=== PATIENT | female | born 1975 | race Caucasian/White ===

== ENCOUNTER 2016-07-16 17:17 | Emergency (ER) | payer OTHER ==
--- NOTE | 2016-07-16 18:05 | ED NURSING NOTES ---
Clinical Report - Nurses [facility] [address] [place] [address] 07/16/2016 17:17 Patient: ZO OROSCO TRIAGE Triage time 17:31. Acuity: LEVEL 4. Chief Complaint: SINUS DRAINAGE and SINUS CONGESTION. 17:31 07/16/16. 17:31 07/16/16. Alert. No acute distress. --17:37 Chris Leroy R.N. 17:31 07/16/16. BP: 140/80. HR: 95. RR: 14. O2 saturation: 100% on room air. Temp: 97.8 F (oral). Pain level now: 0/10. --17:37 Chris Leroy R.N. Weight: 83.9 kg stated. Height/Length: 65 inches Per Patient. BMI: 30.8. --17:32 Chris Leroy R.N. Medications Albuterol-Ipratropium Inhalation. --17:32 Chris Leroy R.N. Depo-Provera Intramuscular, q 3 months. --17:32 Chris Leroy R.N. Nicotine Transdermal. --17:32 Chris Leroy R.N. Medication/allergy information source: the patient. --17:37 Chris Leroy R.N. Allergies No Known Drug Allergy. --17:32 Chris Leroy R.N. History Arrived by private vehicle. Historian: patient. Accompanied by family. Primary physician (Kyle Wilson). 17:31 07/16/16. Onset. (Last week). 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 PAST MEDICAL HX: Last normal menstrual period- Depo "irregular" due to depo. Immunizations not up to date. SOCIAL HX: Current every day light tobacco smoker (cigarette)- less than 1/2 a pack per day. No alcohol use or drug use. No recent travel. She has had contact with a sick individual. No infectious disease exposure. FALL RISK ASSESSMENT: Fall risk assessment completed. No fall risk identified. NUTRITIONAL RISK ASSESSMENT: The nutritional risk assessment revealed no deficiencies. FUNCTIONAL ASSESSMENT: Functional assessment: no impairments noted. LEARNING NEEDS ASSESSMENT: The learning needs assessment revealed no barriers. SKIN INTEGRITY ASSESSMENT: Skin integrity risk assessment completed. No skin integrity risk identified. --17:37 Chris Leroy R.N. PROBLEMS: Eczema. Ear Infection. Cellulitis. MRSA Infection. Dental Pain. Asthma. --17:33 Chris Leroy R.N. Otitis Media [RuleOut]. Bronchitis [RuleOut]. Pharyngitis [RuleOut]. Sinusitis [RuleOut]. --17:33 Chris Leroy R.N. ADDITIONAL SURGERIES: . Ear tubes . Tonsillectomy. --17:33 Chris Leroy R.N. Assessment 17:07/16/16. --17:37 Chris Leroy R.N. Interventions 17:07/16/16. 17:07/16/16. ID and allergy band on patient. To treatment room. --17:37 Chris Leroy R.N. PHYSICAL ASSESSMENT 17:33 07/16/16. Ambulatory to room. GENERAL / NEURO / PSYCH: Alert. Oriented X 4. RESPIRATORY: Respirations not labored. SKIN: Skin is warm and dry. --17:33 Chris Leroy R.N. NURSING PROGRESS NOTES 17:34 07/16/16. The plan of care for this patient has been created. Patient gowned. Head of bed elevated. Two patient identifiers checked. Call light placed in reach. Side rails up x 2. Bed placed in lowest position. Brakes of bed on. Brakes of chair on. --17:34 Chris Leroy R.N. 17:34 07/16/16. Patient ready for evaluation- chart flagged and notification provided. --17:34 Chris Leroy R.N. DISPOSITION / DISCHARGE 18:11 07/16/16. Condition at departure: improved. The goals identified in the patient's plan of care were met. No learning barriers present. Discharge instructions provided and reviewed with the patient. Reviewed warnings. Reviewed medication(s). Treatments reviewed. Patient verbalized understanding. Written instructions provided in Thai. The patient was discharged by the physician. She was discharged home and accompanied by family. She left the Emergency Department ambulatory and via private vehicle. Family member driving. FALL RISK ASSESSMENT: Fall risk assessment completed. No fall risk identified. --18:11 Chris Leroy R.N. 18:11 07/16/16. BP: 134/72. HR: 80. RR: 12. O2 saturation: 99% on room air. Temp: 98.2 F (oral). --18:11 Chris Leroy R.N. 18:12 07/16/16. Departure time: 18:12. --18:12 Chris Leroy R.N. Locked/Released at 07/16/2016 18:16 by Chris Leroy R.N.
--- NOTE | 2016-07-16 18:05 | ED CLINICAL REPORT ---
Clinical Report - Physicians/Mid Levels [facility] [address] [place] [address] 07/16/2016 17:17 Patient: ZO OROSCO Arrived- By private vehicle. Historian- patient. HISTORY OF PRESENT ILLNESS Chief Complaint: SINUS PAIN. This started past two weeks and is still present (staying the same). It was gradual in onset and has been constant but is not gone now. The illness is described as moderate. The patient has had sputum production, a cough, nasal congestion, moderate sinus pressure . Associated symptoms include sinus drainage and a nasal discharge. Additional history - The patient has had contact with a sick individual. Similar symptoms previously: None. Recent medical care: The patient was seen recently in a clinic. REVIEW OF SYSTEMS No nausea, vomiting or skin rash. All systems otherwise negative, except as recorded above. PAST HISTORY See nurses notes. SOCIAL HISTORY Smoker- current status unknown. No alcohol use or drug use. No recent travel. Is a local resident. ADDITIONAL NOTES The nursing notes have been reviewed. PHYSICAL EXAM Vital Signs: 07/16/2016 17:31 BP: 140/80. HR: 95. RR: 14. O2 saturation: 100%. Temp: 97.8 F. Pain level now: 0/10. Blood pressure normal. Oxygen saturation normal. Appearance: Alert. No acute distress. Eyes: Pupils equal, round and reactive to light. Eyes normal inspection. ENT: Ears normal. Nose normal. Pharynx normal. Uvula midline. (bilateral frontal sinus tenderness. no swelling. no overyling skin changes, crepitus, daniella abnormalities, erythema, or gross deformities.). Neck: Normal inspection. Neck supple. No meningeal signs. CVS: Normal heart rate and rhythm. Heart sounds normal. Pulses normal. Respiratory: No respiratory distress. Breath sounds normal. No rales, wheezes or stridor. Abdomen: Soft and nontender. No organomegaly. Skin: Skin warm and dry. Normal skin color. No rash. Normal skin turgor. PROGRESS AND PROCEDURES Course of Care: The patient is a pleasant 40-year-old female with past medical history significant for frequent ear infections presented for evaluation of sinus pressure and ear pain. Patient has no signs of acute otitis media on examination. The patient does have some frontal sinus tenderness. Causes of the patient's symptoms, have considered antibiotics. I discussed antibiotic therapy with the patient here in the emergency department. Patient is agreeable to the treatment plan. No signs of Pott's puffy tumor on examination. No other signs of sepsis. Patient has no signs of meningitis. Do not feel patient requires imaging or laboratory studies done here based on her symptoms. Patient will be managed conservatively with antibiotics. Do not feel patient needs to be admitted to the hospital or require further emergency department workup/evaluation. Patient is at low risk for serious competitions with this type of illness and presentation. Patient will be instructed to follow-up with her primary care Dr. Discussed with patient workup, diagnosis, home care, follow-up, and return precautions. All questions answered. The patient expressed understanding of these instructions and was agreeable to them. Prior to patient's departure in the emergency department she is known to be nontoxic and in no acute distress. Disposition: Discharged. Condition: good. CLINICAL IMPRESSION Acute frontal sinusitis (bilateral prolonged). INSTRUCTIONS Warnings: GENERAL WARNINGS: Return or contact your physician immediately if your condition worsens or changes unexpectedly, if not improving as expected, or if other problems arise. Specifically return if pain, vomiting, bleeding, breathing difficulty or fever. Your Current Medications: CONTINUE TAKING THE FOLLOWING MEDICATIONS: Albuterol-Ipratropium Inhalation. Depo-Provera Intramuscular : q 3 months. Nicotine Transdermal. Prescription Medications: Zithromax Z-Damien: Take according to package instructions. No refills. Substitution is permissible. Follow-up: Return to the emergency department as needed. Follow up with your doctor in three days. Reason for referral: recheck today's concerns. Summary of care provided to patient via paper. Screening today revealed the patient's blood pressure to be in the normal range. The patient should follow up with a primary care provider for blood pressure management. Understanding of the discharge instructions verbalized by patient. (Electronically signed by Kurt Villagran Dr. 07/18/2016 19:24)
--- NOTE | 2016-07-16 18:05 | ED NURSING NOTES ---
Clinical Report - Nurses [facility] [address] [place] [address] 07/16/2016 17:17 Patient: ZO OROSCO TRIAGE Triage time 17:31. Acuity: LEVEL 4. Chief Complaint: SINUS DRAINAGE and SINUS CONGESTION. 17:31 07/16/16. 17:31 07/16/16. Alert. No acute distress. --17:37 Chris Leroy R.N. 17:31 07/16/16. BP: 140/80. HR: 95. RR: 14. O2 saturation: 100% on room air. Temp: 97.8 F (oral). Pain level now: 0/10. --17:37 Chris Leroy R.N. Weight: 83.9 kg stated. Height/Length: 65 inches Per Patient. BMI: 30.8. --17:32 Chris Leroy R.N. Medications Albuterol-Ipratropium Inhalation. --17:32 Chris Leroy R.N. Depo-Provera Intramuscular, q 3 months. --17:32 Chris Leroy R.N. Nicotine Transdermal. --17:32 Chris Leroy R.N. Medication/allergy information source: the patient. --17:37 Chris Leroy R.N. Allergies No Known Drug Allergy. --17:32 Chris Leroy R.N. History Arrived by private vehicle. Historian: patient. Accompanied by family. Primary physician (Kyle Wilson). 17:31 07/16/16. Onset. (Last week). 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 PAST MEDICAL HX: Last normal menstrual period- Depo "irregular" due to depo. Immunizations not up to date. SOCIAL HX: Current every day light tobacco smoker (cigarette)- less than 1/2 a pack per day. No alcohol use or drug use. No recent travel. She has had contact with a sick individual. No infectious disease exposure. FALL RISK ASSESSMENT: Fall risk assessment completed. No fall risk identified. NUTRITIONAL RISK ASSESSMENT: The nutritional risk assessment revealed no deficiencies. FUNCTIONAL ASSESSMENT: Functional assessment: no impairments noted. LEARNING NEEDS ASSESSMENT: The learning needs assessment revealed no barriers. SKIN INTEGRITY ASSESSMENT: Skin integrity risk assessment completed. No skin integrity risk identified. --17:37 Chris Leroy R.N. PROBLEMS: Eczema. Ear Infection. Cellulitis. MRSA Infection. Dental Pain. Asthma. --17:33 Chris Leroy R.N. Otitis Media [RuleOut]. Bronchitis [RuleOut]. Pharyngitis [RuleOut]. Sinusitis [RuleOut]. --17:33 Chris Leroy R.N. ADDITIONAL SURGERIES: . Ear tubes . Tonsillectomy. --17:33 Chris Leroy R.N. Assessment 17:07/16/16. --17:37 hCris Leroy R.N. Interventions 17:07/16/16. 17:07/16/16. ID and allergy band on patient. To treatment room. --17:37 Chris Leroy R.N. PHYSICAL ASSESSMENT 17:33 07/16/16. Ambulatory to room. GENERAL / NEURO / PSYCH: Alert. Oriented X 4. RESPIRATORY: Respirations not labored. SKIN: Skin is warm and dry. --17:33 Chris Leroy R.N. NURSING PROGRESS NOTES 17:34 07/16/16. The plan of care for this patient has been created. Patient gowned. Head of bed elevated. Two patient identifiers checked. Call light placed in reach. Side rails up x 2. Bed placed in lowest position. Brakes of bed on. Brakes of chair on. --17:34 Chris Leroy R.N. 17:34 07/16/16. Patient ready for evaluation- chart flagged and notification provided. --17:34 Chris Leroy R.N. DISPOSITION / DISCHARGE 18:11 07/16/16. Condition at departure: improved. The goals identified in the patient's plan of care were met. No learning barriers present. Discharge instructions provided and reviewed with the patient. Reviewed warnings. Reviewed medication(s). Treatments reviewed. Patient verbalized understanding. Written instructions provided in Kinyarwanda. The patient was discharged by the physician. She was discharged home and accompanied by family. She left the Emergency Department ambulatory and via private vehicle. Family member driving. FALL RISK ASSESSMENT: Fall risk assessment completed. No fall risk identified. --18:11 Chris Leroy R.N. 18:11 07/16/16. BP: 134/72. HR: 80. RR: 12. O2 saturation: 99% on room air. Temp: 98.2 F (oral). --18:11 Chris Leroy R.N. 18:12 07/16/16. Departure time: 18:12. --18:12 Chris Leroy R.N. Locked/Released at 07/16/2016 18:16 by Chris Leroy R.N.
--- NOTE | 2016-07-18 19:25 | ED MED RECONCILIATION SUMMARY ---
Patient: ZO OROSCO Medication Reconciliation Report [facility] VisitID: [id number] [address] [place] [address] 40y, F Registration Date/Time: 07/16/2016 Weight: 83.9 kg Height/Length: 65 in. BMI: 30.8 ALLERGIES: No Known Drug Allergy The patient's Home Medications are listed below: CONTINUE TAKING THE FOLLOWING MEDICATIONS: Albuterol-Ipratropium Inhalation Depo-Provera Intramuscular, q 3 months Nicotine Transdermal The source(s) of the original Home Medication information: patient The following Medications were given to the patient in the Emergency Department: None. The following Medications were prescribed to the patient: Zithromax Z-Damien: Take according to package instructions. No refills. Substitution is permissible. -- Kurt Villagran Dr.
--- NOTE | 2016-07-18 19:25 | ED DISCHARGE INSTRUCTIONS ---
Patient: ZO OROSCO General Instructions [facility] VisitID: [id number] [place] [address] 40y, F Registration Date/Time: 07/16/2016 Acute frontal sinusitis (bilateral prolonged). INSTRUCTIONS Warnings: GENERAL WARNINGS: Return or contact your physician immediately if your condition worsens or changes unexpectedly, if not improving as expected, or if other problems arise. Specifically return if pain, vomiting, bleeding, breathing difficulty or fever. Your Current Medications: CONTINUE TAKING THE FOLLOWING MEDICATIONS: Albuterol-Ipratropium Inhalation. Depo-Provera Intramuscular : q 3 months. Nicotine Transdermal. Prescription Medications: Zithromax Z-Damien: Take according to package instructions. No refills. Substitution is permissible. Follow-up: Return to the emergency department as needed. Follow up with your doctor in three days. Reason for referral: recheck today's concerns. Summary of care provided to patient via paper. Screening today revealed the patient's blood pressure to be in the normal range. The patient should follow up with a primary care provider for blood pressure management. Understanding of the discharge instructions verbalized by patient. ADDITIONAL INFORMATION Azithromycin Oral tablet What is this medicine? AZITHROMYCIN (az ith gavino MYE sin) is a macrolide antibiotic. It is used to treat or prevent certain kinds of bacterial infections. It will not work for colds, flu, or other viral infections. How should I use this medicine? Take this medicine by mouth with a full glass of water. Follow the directions on the prescription label. The tablets can be taken with food or on an empty stomach. If the medicine upsets your stomach, take it with food. Take your medicine at regular intervals. Do not take your medicine more often than directed. Take all of your medicine as directed even if you think your are better. Do not skip doses or stop your medicine early. Talk to your project production engineer regarding the use of this medicine in children. Special care may be needed. What side effects may I notice from receiving this medicine? Side effects that you should report to your doctor or health transitional care manager as soon as possible: allergic reactions like skin rash, itching or hives, swelling of the face, lips, or tongue confusion, nightmares or hallucinations dark urine difficulty breathing hearing loss irregular heartbeat or chest pain pain or difficulty passing urine redness, blistering, peeling or loosening of the skin, including inside the mouth white patches or sores in the mouth yellowing of the eyes or skin Side effects that usually do not require medical attention (report to your doctor or health transitional care manager if they continue or are bothersome): diarrhea dizziness, drowsiness headache stomach upset or vomiting tooth discoloration vaginal irritation What may interact with this medicine? Do not take this medicine with any of the following medications: lincomycin This medicine may also interact with the following medications: amiodarone antacids cyclosporine digoxin magnesium nelfinavir phenytoin warfarin What if I miss a dose? If you miss a dose, take it as soon as you can. If it is almost time for your next dose, take only that dose. Do not take double or extra doses. Where should I keep my medicine? Keep out of the reach of children. Store at room temperature between 15 and 30 degrees C (59 and 86 degrees F). Throw away any unused medicine after the expiration date. What should I tell my health care provider before I take this medicine? They need to know if you have any of these conditions: kidney disease liver disease irregular heartbeat or heart disease an unusual or allergic reaction to azithromycin, erythromycin, other macrolide antibiotics, foods, dyes, or preservatives or trying to get breast-feeding What should I watch for while using this medicine? Tell your doctor or health transitional care manager if your symptoms do not improve. Do not treat diarrhea with over the counter products. Contact your doctor if you have diarrhea that lasts more than 2 days or if it is severe and watery. This medicine can make you more sensitive to the sun. Keep out of the sun. If you cannot avoid being in the sun, wear protective clothing and use sunscreen. Do not use sun lamps or tanning beds/booths. You have been given the following additional information: Azithromycin Oral tablet (Electronically signed by Kurt Villagran Dr. 07/18/2016 19:24)
--- NOTE | 2016-07-18 19:25 | ED MAR SUMMARY ---
..... Medication Administration Record [facility] [address] [place], [place] [id number] Patient: ZO OROSCO Visit ID: [id number] 40y, F Weight: 83.9 kg Height/Length: 65 in BMI: 30.8 ALLERGIES: No Known Drug Allergy
--- NOTE | 2016-07-18 19:25 | ED MED RECONCILIATION SUMMARY ---
Patient: ZO OROSCO Medication Reconciliation Report [facility] VisitID: [id number] [address] [place] [address] 40y, F Registration Date/Time: 07/16/2016 Weight: 83.9 kg Height/Length: 65 in. BMI: 30.8 ALLERGIES: No Known Drug Allergy The patient's Home Medications are listed below: CONTINUE TAKING THE FOLLOWING MEDICATIONS: Albuterol-Ipratropium Inhalation Depo-Provera Intramuscular, q 3 months Nicotine Transdermal The source(s) of the original Home Medication information: patient The following Medications were given to the patient in the Emergency Department: None. The following Medications were prescribed to the patient: Zithromax Z-Damien: Take according to package instructions. No refills. Substitution is permissible. -- Kurt Villagran Dr.
--- NOTE | 2016-07-18 19:25 | ED DISCHARGE INSTRUCTIONS ---
Patient: ZO OROSCO General Instructions [facility] VisitID: [id number] [place] [address] 40y, F Registration Date/Time: 07/16/2016 Acute frontal sinusitis (bilateral prolonged). INSTRUCTIONS Warnings: GENERAL WARNINGS: Return or contact your physician immediately if your condition worsens or changes unexpectedly, if not improving as expected, or if other problems arise. Specifically return if pain, vomiting, bleeding, breathing difficulty or fever. Your Current Medications: CONTINUE TAKING THE FOLLOWING MEDICATIONS: Albuterol-Ipratropium Inhalation. Depo-Provera Intramuscular : q 3 months. Nicotine Transdermal. Prescription Medications: Zithromax Z-Damien: Take according to package instructions. No refills. Substitution is permissible. Follow-up: Return to the emergency department as needed. Follow up with your doctor in three days. Reason for referral: recheck today's concerns. Summary of care provided to patient via paper. Screening today revealed the patient's blood pressure to be in the normal range. The patient should follow up with a primary care provider for blood pressure management. Understanding of the discharge instructions verbalized by patient. ADDITIONAL INFORMATION Azithromycin Oral tablet What is this medicine? AZITHROMYCIN (az ith gavino MYE sin) is a macrolide antibiotic. It is used to treat or prevent certain kinds of bacterial infections. It will not work for colds, flu, or other viral infections. How should I use this medicine? Take this medicine by mouth with a full glass of water. Follow the directions on the prescription label. The tablets can be taken with food or on an empty stomach. If the medicine upsets your stomach, take it with food. Take your medicine at regular intervals. Do not take your medicine more often than directed. Take all of your medicine as directed even if you think your are better. Do not skip doses or stop your medicine early. Talk to your harp regulator regarding the use of this medicine in children. Special care may be needed. What side effects may I notice from receiving this medicine? Side effects that you should report to your doctor or health adult day care worker as soon as possible: allergic reactions like skin rash, itching or hives, swelling of the face, lips, or tongue confusion, nightmares or hallucinations dark urine difficulty breathing hearing loss irregular heartbeat or chest pain pain or difficulty passing urine redness, blistering, peeling or loosening of the skin, including inside the mouth white patches or sores in the mouth yellowing of the eyes or skin Side effects that usually do not require medical attention (report to your doctor or health adult day care worker if they continue or are bothersome): diarrhea dizziness, drowsiness headache stomach upset or vomiting tooth discoloration vaginal irritation What may interact with this medicine? Do not take this medicine with any of the following medications: lincomycin This medicine may also interact with the following medications: amiodarone antacids cyclosporine digoxin magnesium nelfinavir phenytoin warfarin What if I miss a dose? If you miss a dose, take it as soon as you can. If it is almost time for your next dose, take only that dose. Do not take double or extra doses. Where should I keep my medicine? Keep out of the reach of children. Store at room temperature between 15 and 30 degrees C (59 and 86 degrees F). Throw away any unused medicine after the expiration date. What should I tell my health care provider before I take this medicine? They need to know if you have any of these conditions: kidney disease liver disease irregular heartbeat or heart disease an unusual or allergic reaction to azithromycin, erythromycin, other macrolide antibiotics, foods, dyes, or preservatives or trying to get breast-feeding What should I watch for while using this medicine? Tell your doctor or health adult day care worker if your symptoms do not improve. Do not treat diarrhea with over the counter products. Contact your doctor if you have diarrhea that lasts more than 2 days or if it is severe and watery. This medicine can make you more sensitive to the sun. Keep out of the sun. If you cannot avoid being in the sun, wear protective clothing and use sunscreen. Do not use sun lamps or tanning beds/booths. You have been given the following additional information: Azithromycin Oral tablet (Electronically signed by Kurt Villagran Dr. 07/18/2016 19:24)
--- NOTE | 2016-07-18 19:25 | ED MAR SUMMARY ---
..... Medication Administration Record [facility] [address] [place], [place] [id number] Patient: ZO OROSCO Visit ID: [id number] 40y, F Weight: 83.9 kg Height/Length: 65 in BMI: 30.8 ALLERGIES: No Known Drug Allergy
== END 2016-07-16 18:12 | disposition home or self-care (01) ==
LOC: ED SRH 17:17
DX: J01.10 Acute frontal sinusitis, unspecified (principal); J45.909 Unspecified asthma, uncomplicated; F17.210 Nicotine dependence, cigarettes, uncomplicated